=== PATIENT | female | born 2000 | race African-American/Black ===

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

== ENCOUNTER 2022-06-23 18:52 | Emergency (ER) | payer OTHER, SELFPAY ==
[2022-06-23] MEDS ORDERED: Ketorolac Tromethamine 30 MG/ML VIAL ONE (21:18)
== END 2022-06-23 21:42 | disposition home or self-care (01) ==
LOC: ERS 18:52
DX: S00.83XA Contusion of other part of head, initial encounter (principal); V49.9XXA Car occupant (driver) (passenger) injured in unspecified traffic accident, initial encounter
CPT/HCPCS: 70450; 72125; 96372; J1885

== ENCOUNTER 2023-03-25 20:40 | Emergency (ER) | payer OTHER ==
[2023-03-25] MEDS ORDERED: Bicillin LA 1.2 MILLION UNITS/2 ML SYRINGE ONE (22:54)
== END 2023-03-25 23:29 | disposition home or self-care (01) ==
LOC: ERS 20:40
DX: J02.9 Acute pharyngitis, unspecified (principal); Z20.822 Contact with and (suspected) exposure to COVID-19
CPT/HCPCS: 87430; 87635; 96372; 99283; J0561

== ENCOUNTER 2023-04-25 08:50 | Emergency (ER) | payer OTHER ==
[2023-04-25] MEDS ORDERED: cefTRIAXone (ROCEPHIN) 1 GM VIAL ONE (10:28)
[2023-04-25] MEDS ORDERED: Lidocaine 1% PF 5 ML VIAL ONE (10:28)
[2023-04-25 10:52] LABS: Bilirubin Negative (Negative); Blood, Urine Trace (Negative); Glucose, Urine (Dipstick) Negative (Negative); Ketone, Urine Negative (Negative); Leukocyte Negative (Negative); Nitrite Negative (Negative); Protein, Urine (Dipstick) Negative (Neg-Trace); Urobilinogen 0.2 mg/dL (Less than 2)
[2023-04-25 10:53] LABS: Clarity Clear (Clear); Pregnancy Test - Urine (BHCG) Negative (Negative); Pregu Control Background? CLEAR/WHITE (CLR/WHITE); Pregu Control Bar Appear? YES (CONTROL BAR)
[2023-04-25 10:59] LABS: Bacteria/HPF 1+ HPF (None Seen); CAUTI Indications for Culture Dysuria,urgency,freq; RBC/HPF 0-3 HPF (0-3); Squamous Epithelial 21-50 HPF (0-3); WBC/HPF None Seen HPF (0-3)
[2023-04-25 11:01] LABS: Urine Culture Reflex No No
[2023-04-25 15:00] LABS: Chlamydia by PCR, Vaginal Swab Not Detected (NotDetected); GC by PCR, Vaginal Swab Not Detected (NotDetected)
== END 2023-04-25 12:12 | disposition home or self-care (01) ==
LOC: ERS 08:50
DX: N73.9 Female pelvic inflammatory disease, unspecified (principal); N76.0 Acute vaginitis
CPT/HCPCS: 81001; 81025; 87480; 87491; 87510; 87591; 87660; 96372; 99283; J0696

== ENCOUNTER 2023-04-29 03:26 | Emergency (ER) | payer OTHER | END 2023-04-29 05:43 | disposition home or self-care (01) | LOC: ERS 03:26 | DX: N89.8 Other specified noninflammatory disorders of vagina (principal) | CPT/HCPCS: 99283 ==

== ENCOUNTER 2023-07-11 06:28 | Emergency (ER) | payer OTHER ==
[2023-07-11] MEDS ORDERED: Acetaminophen 500 MG TAB ONE (07:20)
[2023-07-11] MEDS ORDERED: traMADol HCl 50 MG TAB ONE (09:38)
== END 2023-07-11 10:44 | disposition home or self-care (01) ==
LOC: ERS 06:28
DX: M25.571 Pain in right ankle and joints of right foot (principal)

== ENCOUNTER 2023-08-20 11:01 | Emergency (ER) | payer OTHER, SELFPAY | END 2023-08-20 11:19 | disposition home or self-care (01) | LOC: ERS 11:01 | DX: B34.9 Viral infection, unspecified (principal) | CPT/HCPCS: 99282 ==

== ENCOUNTER 2023-08-22 04:57 | Emergency (ER) | payer OTHER, SELFPAY ==
[2023-08-22] MEDS ORDERED: Benzonatate 100 MG CAP ONE (06:26)
[2023-08-22] MEDS ORDERED: Ibuprofen 800 MG TAB ONE (06:27)
[2023-08-22 06:53] LABS: SARS-CoV-2 NAA Rapid Test DETECTED (NotDetected)
== END 2023-08-22 07:20 | disposition home or self-care (01) ==
LOC: ERS 04:57
DX: U07.1 COVID-19 (principal)
CPT/HCPCS: 87081; 87430; 99283

== ENCOUNTER 2025-04-23 09:38 | Outpatient (CLI) | payer MEDICAID | END 2025-04-23 09:39 | disposition home or self-care (01) | LOC: ULT 09:38 | PROVIDERS: ATTEND Family Medicine | DX: O09.892 Supervision of other high risk pregnancies, second trimester (principal) | CPT/HCPCS: 76805 ==